=== PATIENT | female | born 1955 | race Asian ===

== ENCOUNTER 2023-09-12 09:46 | Emergency (ER) | payer MEDICARE, OTHER, SELFPAY ==
[2023-09-12 09:53] VITALS: BP 175/79; PULSE 91; RESP 20; TEMP 36.8; O2SAT 98
[2023-09-12 10:42] LABS: Influenza A - CEPHEID Flu A NEGATIVE (NEGATIVE); Influenza B - CEPHEID Flu B NEGATIVE (NEGATIVE); Respiratory Syncytial Virus Negative (Negative)
[2023-09-12 10:43] LABS: COVID-19 CEPHEID 4-PLEX PCR Negative (Negative)
--- NOTE | 2023-09-12 11:39 | ED.URI ---
HPI - URI/Sore Throat <Rosa Elena Kimble PA-C - Last Filed: 09/12/23 11:44> General Chief Complaint: Upper Respiratory Symptoms Stated Complaint: bad cold T-5 Time Seen by Provider: 09/12/23 11:18 Source: patient Mode of arrival: Ambulatory History of Present Illness HPI Narrative: 67-year-old female presents to the ED with 5 days of upper respiratory symptoms. Patient has complained of chills, runny nose, cough. Patient denies fevers, chest pain, shortness of breath, nausea, vomiting, diarrhea. Patient states that it is the cough that is her most troublesome symptom. Related Data Previous Rx's Medication Instructions Recorded benzonatate 200 mg capsule 200 mg PO TID PRN cough #30 caps 09/12/23 Allergies Allergy/AdvReac Type Severity Reaction Status Date / Time clotrimazole Allergy Verified 09/12/23 09:53 fluconazole Allergy Verified 09/12/23 09:53 metronidazole Allergy Verified 09/12/23 09:53 shellfish derived Allergy Verified 09/12/23 09:53 Sulfa (Sulfonamide Allergy Verified 09/12/23 09:53 Antibiotics) Review of Systems <Rosa Elena Kimble PA-C - Last Filed: 09/12/23 11:44> Constitutional Constitutional: Reports chills, Denies fatigue, Denies fever(s), Denies frequent falls, Denies lethargy and Denies weakness Eyes Eyes: Denies change in vision, Denies eye discharge, Denies irritation and Denies loss of vision ENT Ears, Nose, Mouth, and Throat: Denies change in voice, Denies dizziness, Reports nasal congestion, Reports nasal discharge, Denies neck pain, Denies sore throat and Denies throat swelling Cardiovascular Cardiovascular: Denies chest pain, Denies irregular heart rhythm, Denies lightheadedness, Denies palpitations, Denies dyspnea, Denies dyspnea on exertion and Denies orthopnea Respiratory Respiratory: Reports cough, Denies dyspnea, Denies dyspnea on exertion and Denies wheezing Gastrointestinal Gastrointestinal: Denies abdominal pain, Denies change in bowel habits, Denies diarrhea, Denies nausea and Denies vomiting Musculoskeletal Musculoskeletal: Denies neck pain and Denies numbness Integumentary/Breasts Skin/Breast: Denies pruritus, Denies erythema, Denies rash and Denies wounds Neurologic Neurologic: Denies behavioral changes, Denies confusion, Denies dizziness, Denies frequent falls, Denies loss of vision, Denies numbness and Denies weakness Psychiatric Psychiatric: Denies anxiety, Denies behavioral changes, Denies confusion, Denies depression, Denies homicidal ideation and Denies suicidal ideation Endocrine Endocrine: Denies fatigue, Denies flushing and Denies palpitations Hematologic/Lymphatic Hematologic/Lymphatic: Denies easy bruising Allergic/Immunologic Allergic/Immunologic: Denies urticaria, Denies throat swelling and Denies wheezing Patient History <Rosa Elena Kimble PA-C - Last Filed: 09/12/23 11:44> Social History Smoking Status: Never smoker Smoking Status: Never smoker Substance Use Type: does not use Exam <Rosa Elena Kimble PA-C - Last Filed: 09/12/23 11:44> Narrative Exam Narrative: Const General:?cooperative, healthy appearing and comfortable HENPA Head:?normal to inspection Ears:?hearing grossly normal bilaterally; tympani normal bilaterally Nose:?external nose normal Face and sinus:?normal facial exam and sinuses nontender Mouth:?oral mucosae normal Throat:?posterior oropharynx normal Eyes General:?appearance normal, both eyes and all related structures Neck Neck:?normal visual inspection and no lymphadenopathy noted Resp Effort & Inspection:?normal respiratory effort Auscultation:?clear to auscultation bilaterally Cardio Rate:?regular rate Rhythm:?regular rhythm Neuro General:?patient alert, patient awake and patient oriented x3 Initial Vital Signs Initial Vital Signs: Vital Signs Temperature 98.3 F 09/12/23 09:53 Pulse Rate 91 H 09/12/23 09:53 Respiratory Rate 20 09/12/23 09:53 Blood Pressure 175/79 H 09/12/23 09:53 Pulse Oximetry 98 09/12/23 09:53 Oxygen Delivery Method Room Air 09/12/23 09:53 <Triny Hansen DO - Last Filed: 09/20/23 00:24> Initial Vital Signs Initial Vital Signs: Vital Signs Temperature 98.3 F 09/12/23 09:53 Pulse Rate 91 H 09/12/23 09:53 Respiratory Rate 20 09/12/23 09:53 Blood Pressure 175/79 H 09/12/23 09:53 Pulse Oximetry 98 09/12/23 09:53 Oxygen Delivery Method Room Air 09/12/23 09:53 Course <Rosa Elena Kimble PA-C - Last Filed: 09/12/23 11:44> Orders Ordered: ED Orders 09/12/23 10:00 Covid-19 + FLU A/B + RSV - PCR Stat Vital Signs Vital signs: Vital Signs - 8 hr 09/12/23 09:53 Temperature 98.3 F Pulse Rate 91 H Respiratory Rate 20 Blood Pressure 175/79 H Pulse Oximetry 98 Oxygen Delivery Method Room Air <Triny Hansen DO - Last Filed: 09/20/23 00:24> Orders Ordered: ED Orders 09/12/23 10:00 Covid-19 + FLU A/B + RSV - PCR Stat Vital Signs Vital signs: Vital Signs - 8 hr 09/12/23 09:53 Temperature 98.3 F Pulse Rate 91 H Respiratory Rate 20 Blood Pressure 175/79 H Pulse Oximetry 98 Oxygen Delivery Method Room Air MDM - URI/Sore Throat <Rosa Elena Kimble PA-C - Last Filed: 09/12/23 11:44> Lab Data Labs: Lab Results 09/12/23 Range/Units 10:00 SARS-CoV-2 (PCR) Negative (Negative) Influenza A (RT-PCR) Flu a negative (NEGATIVE) Influenza B (RT-PCR) Flu b negative (NEGATIVE) RSV (PCR) Negative (Negative) MDM Narrative Medical decision making narrative: 67-year-old female presents to the ED with 5 days of upper respiratory symptoms. Concern for COVID-19 infection versus influenza versus other viral URI versus other. Patient tested negative for COVID-19, influenza. Patient's symptoms likely due to a viral URI. Recommend Tylenol, ibuprofen for symptomatic relief. Prescribed Tessalon Perles for cough. Recommend good hydration. Recommend follow-up with PCP. ED return precautions discussed with patient. Patient verbalized understanding. Medical records reviewed: Yes <Triny Hansen DO - Last Filed: 09/20/23 00:24> Lab Data Labs: Lab Results 09/12/23 Range/Units 10:00 SARS-CoV-2 (PCR) Negative (Negative) Influenza A (RT-PCR) Flu a negative (NEGATIVE) Influenza B (RT-PCR) Flu b negative (NEGATIVE) RSV (PCR) Negative (Negative) Discharge Plan Departure Patient Disposition: Home Clinical Impression: Upper respiratory infection Instructions: DI for Viral Upper Respiratory Infection -- Adult Activity Restrictions/Additional Instructions: You were evaluated in the ED today for a cough and a cold. Your flu and COVID 19 tests were negative. It appears that you have some other type of upper respiratory infection that is causing your symptoms. You are being prescribed Tessalon Perles for your cough. Please take those as prescribed. Continue to stay well hydrated. You may take Tylenol and ibuprofen for aches and pains. Please follow-up with your PCP as soon as possible. Return to the ED if you experience worsening symptoms, chest pain, shortness of breath. Prescriptions: New benzonatate 200 mg capsule 200 mg PO TID PRN (Reason: cough) Qty: 30 0RF Referrals: Miscellaneous,Doctor, MD [Primary Care Provider] - Stand Alone Forms: Patient Portal/API ED Sign-out <Triny Hansen DO - Last Filed: 09/20/23 00:24> Cosign ED Attending Eleanor Attestation: I was immediately available in the department for consultation.
[2023-09-12 12:12] VITALS: BP 164/69; PULSE 81; RESP 20; O2SAT 98
== END 2023-09-12 12:14 | disposition home or self-care (01) ==
PROVIDERS: Emergency Medicine; Emergency Provider Student in an Organized Health Care Education/Training Program
DX: J06.9 Acute upper respiratory infection, unspecified (principal)
CPT/HCPCS: 0241U; 99281; 99283